=== PATIENT | female | born 1990 | race Two or more races ===

== ENCOUNTER 2018-12-16 07:09 | Day surgery (SDC) | payer OTHER ==
[2018-12-14 11:46] LABS: HEMATOCRIT 42.1 % (36.0-47.0); HEMOGLOBIN 14.8 g/dL (12.0-15.5); MEAN CORPUSCULAR HEMOGLOBIN 30.4 pg (27.0-33.4); MEAN CORPUSCULAR VOLUME 87 fl (80-97); PLATELET COUNT 306 10^3/uL (150-450); RED BLOOD COUNT 4.86 10^6/uL (3.72-5.28); RED CELL DISTRIBUTION WIDTH 12.9 % (11.5-14.0); WHITE BLOOD COUNT 8.2 10^3/uL (4.0-10.5)
[2018-12-14 11:53] LABS: APPEARANCE,URINE SLIGHTLY-CLOUDY; BILIRUBIN,URINE NEGATIVE (NEGATIVE); COLOR,URINE YELLOW; GLUCOSE, URINE NEGATIVE (NEGATIVE); KETONES,URINE NEGATIVE (NEGATIVE); LEUKOCYTE ESTERASE,URINE SMALL (NEGATIVE); NITRITE,URINE NEGATIVE (NEGATIVE); PROTEIN,URINE NEGATIVE (NEGATIVE); URINE SPECIFIC GRAVITY 1.026; UROBILINOGEN,URINE NEGATIVE mg/dL (<2.0)
[~2018-12-16 07:09] MED LIST: LACTATED RINGERS 1000 ML IV PRN; LIDOCAINE 0.5% INJ-PF (5 MG/ML) 50 ML SDV SUBCUT PRN
[2018-12-16] MEDS ORDERED: PROPOFOL INJ 200 MG/20 ML VIAL IV ONE (08:50)
[2018-12-16] MEDS ORDERED: MIDAZOLAM 2 MG/2 ML INJ ONE (08:50)
[2018-12-16] MEDS ORDERED: FENTANYL CITRATE INJ/PF 100 MCG/2 ML AMPUL ONE (08:50)
[2018-12-16] MEDS ORDERED: HYDROMORPHONE HCL INJ/PF 2 MG/ML AMPULE ONE (08:50)
[2018-12-16] MEDS ORDERED: ONDANSETRON HCL INJ/PF 4 MG/2 ML SDV ONE (08:50)
[2018-12-16] MEDS ORDERED: BUPIVACAINE HCL 0.5%-EPI 1:200000 INJ/PF 30 ML VIAL ONE (09:17)
[2018-12-16] MEDS ORDERED: CEFTRIAXONE INJ 1000 MG VIAL ONE (09:26)
[2018-12-16] MEDS ORDERED: FENTANYL CITRATE INJ/PF 100 MCG/2 ML AMPUL IV PRN ×3 (09:44)
[2018-12-16] MEDS ORDERED: MORPHINE SULFATE 10 MG/ML INJ IV PRN (09:44)
[2018-12-16] MEDS ORDERED: MEPERIDINE HCL/PF INJ 25 MG/1 ML DISP.SYRIN IV PRN (09:44)
[2018-12-16] MEDS ORDERED: PROMETHAZINE HCL INJ 25 MG/1 ML VIAL IV PRN ×2 (09:44)
[2018-12-16] MEDS ORDERED: DIPHENHYDRAMINE HCL 50 MG/ML VIAL IV PRN (09:44)
[2018-12-16] MEDS ORDERED: OXYCODONE-ACETAMINOPHEN 5-325 MG TABLET PO PRN ×3 (09:44→10:02)
[2018-12-16] MEDS ORDERED: ONDANSETRON HCL 8 MG TABLET PO PRN (10:02)
[2018-12-16 11:16] VITALS: BP 110/77
--- NOTE | 2018-12-16 13:27 | OPERATIVE REPORT E ---
Operative Report NAME: NELSON DAVILA : 1990 AGE: 28Y DATE OF SURGERY: 12/16/2018 ROOM: PREOPERATIVE DIAGNOSIS: Bartholin duct abscess. POSTOPERATIVE DIAGNOSIS: Bartholin duct abscess. OPERATION: Marsupialization of Bartholin duct. SURGEON: Christopher GARG M.D. ANESTHESIA: General. ESTIMATED BLOOD LOSS: 5 mL. TISSUE REMOVED: None. PROCEDURE: The patient was placed in dorsal lithotomy position, prepped, and draped in the usual sterile fashion. The Bartholin was entered on the inner aspect of the vagina and copious amounts of pussy drainage was expressed. The cyst was irrigated and then the cyst wall was then plicated to the vaginal tissue in a circumferential running fashion. The procedure was then terminated, tolerated well. She was taken to recovery room in good condition. DICTATING PHYSICIAN: Christopher GARG M.D. [id number] PHY#: [id number] ID: [id number] JOB#: [id number] ACCT: [id number] cc:Christopher GARG M.D. >
[2018-12-16] MEDS ORDERED: IBUPROFEN 800 MG TABLET PO SCH (14:00)
== END 2018-12-16 11:00 | disposition home or self-care (01) ==
LOC: OROUT 07:09
PROVIDERS: ATTEND Obstetrics & Gynecology Gynecology
DX: N75.1 Abscess of Bartholin's gland (principal)
CPT/HCPCS: 36415; 87070; 87205; 85027; 81025; 87075; 81001; 56440; J2250; J3490; J3010; J0696; J2405; J2704; 940; J1170